=== PATIENT | female | born 1950 | race Caucasian/White ===

== ENCOUNTER → 2020-04-19 | Outpatient (CLI) | payer MEDICARE, BC ==
[~2020-04-19] MED LIST: AMOCLA875 PO; CAND16 PO; CAND4 PO; CHOL10002 PO; CICL.77TC; Cyclobenzaprine5 MG PO; DIGO.125; ERGO400 PO; ERGO50000 PO; FLUC200; IBUP600 PO; LEVSOD88; LEVSOD88 PO; METO25ER PO; MOMENI; MULVITMINF PO; Norco 5-325 Ta1 EACH PO; POTCHL20ER PO; PROBIOTIC1 EAC1; SPIR25 PO; [UNRECOGNIZED DRUG - CODE]
== END | disposition home or self-care (01) ==
LOC: PLD 13:22 → LAB SHORT 13:22
DX: D36.11 Benign neoplasm of peripheral nerves and autonomic nervous system of face, head, and neck (principal)
CPT/HCPCS: 88305